=== PATIENT | male | born 1990 | race Caucasian/White ===

== ENCOUNTER 2017-01-04 10:59 | Emergency (ER) | payer BC ==
[2017-01-04] MEDS ORDERED: Acetaminophen/oxyCODONE 325-5 MG Tab PO ONE ×2 (11:24→13:05)
--- NOTE | 2017-01-04 12:31 | EDM.PDOC ---
ED HPI GENERAL MEDICAL PROBLEM - General Chief Complaint: Lower Extremity Injury/Pain Stated Complaint: KNEE INJURY/ BUCKED OFF HORSE YESTERDAY Time Seen by Provider: 01/04/17 11:08 Source of Information: Reports: Patient, RN Notes Reviewed - History of Present Illness INITIAL COMMENTS - FREE TEXT/NARRATIVE: 26-year-old male comes in with left knee and left leg pain. He injured the leg and knee about 3 weeks ago after a fall. His had a scabbed lesion just below the knee that is been slow to heal. He fell again yesterday reinjuring the knee. The pain is much worse this morning. He now is severe pain with any attempt at moving the leg or knee. The knee joint is swollen. Lower leg is also swollen and starting to look somewhat inflamed. He is here requesting pain medicine but also wanting to know "what is wrong" no fever or chills. No chest pain or difficulty breathing Left Anterior Knee Pain Score (Numeric/FACES): 8 - Related Data Allergies Allergy/AdvReac Type Severity Reaction Status Date / Time No Known Allergies Allergy Verified 01/04/17 11:07 Home Meds: Home Meds LORazepam [Ativan] 1 mg PO Q8HR PRN #10 tablet 01/04/17 [Rx] oxyCODONE HCl/Acetaminophen [Percocet 5-325 mg Tablet] 1 each PO Q4HR PRN #20 tablet 01/04/17 [Rx] Past Medical History - Past Surgical History GI Surgical History: Reports: Hernia Repair/Other Social & Family History - Tobacco Use Smoking Status *Q: Never Smoker Second Hand Smoke Exposure: No - Caffeine Use Caffeine Use: Reports: Coffee, Soda - Recreational Drug Use Recreational Drug Use: No Review of Systems - Review of Systems Review Of Systems: See Below Constitutional: Denies: Chills, Fever Eyes: Reports: No Symptoms Mouth/Throat: Reports: No Symptoms Respiratory: Denies: Shortness of Breath, Pleuritic Chest Pain Cardiovascular: Denies: Chest Pain GI/Abdominal: Denies: Nausea, Vomiting Musculoskeletal: Reports: Leg Pain (Left knee left leg), Joint Pain Skin: Reports: Wound (There is an abrasion of the left anterior leg just below the knee that is been slowly heal with surrounding erythema) Neurological: Denies: Numbness, Tingling ED EXAM, GENERAL - Physical Exam Exam: See Below Exam Limited By: No Limitations General Appearance: Alert, Moderate Distress Head: Atraumatic Neck: Supple, Full Range of Motion Respiratory/Chest: No Respiratory Distress, Lungs Clear, Normal Breath Sounds Cardiovascular: Regular Rate, Rhythm Extremities: Joint Swelling (There is swelling, diffuse tenderness, very mild effusion of the left knee no warmth or erythema of the knee. No lesions over the knee.), Leg Pain (There is tenderness swelling, slight erythema of the left calf, 2 abrasion injuries of the anterior calf just below the knee that are scabbed over, moderately inflamed around those areas of prior injury) Course - Vital Signs Last Recorded V/S: Last Vital Signs Temp 98.3 F 01/04/17 11:07 Pulse 84 01/04/17 11:07 Resp 24 H 01/04/17 11:07 BP 156/111 H 01/04/17 11:07 Pulse Ox 100 01/04/17 11:07 - Orders/Labs/Meds Meds: Medications Discontinued Medications Generic Name Dose Route Start Last Admin Trade Name Jakeq PRN Reason Stop Dose Admin Doxycycline Hyclate 200 mg 01/04/17 14:00 01/04/17 14:21 Vibramycin PO 01/04/17 14:01 200 mg ONETIME ONE Administration Ketorolac Tromethamine 60 mg 01/04/17 13:34 01/04/17 13:43 Toradol IM 01/04/17 13:35 60 mg ONETIME ONE Administration Lorazepam 1 mg 01/04/17 14:01 01/04/17 14:21 Ativan PO 01/04/17 14:02 1 mg ONETIME ONE Administration Oxycodone/Acetaminophen 1 tab 01/04/17 11:24 01/04/17 11:38 Percocet 325-5 Mg PO 01/04/17 11:25 1 tab ONETIME ONE Administration Oxycodone/Acetaminophen 1 tab 01/04/17 13:05 01/04/17 13:10 Percocet 325-5 Mg PO 01/04/17 13:06 1 tab ONETIME ONE Administration Trimethoprim/Sulfamethoxazole 2 tab 01/04/17 14:01 01/04/17 14:21 Septra Ds PO 01/04/17 14:02 2 tab ONETIME ONE Administration - Re-Assessments/Exams Free Text/Narrative Re-Assessment/Exam: 01/04/17 14:02. X-rays of the knee are negative for fracture although he does have a small effusion. Ultrasound of the leg is negative for DVT. He does have cellulitis of the lower leg developing. We'll get started with Bactrim and doxycycline at this time. Discharge instructions as documented Departure - Departure Time of Disposition: 14:02 Disposition: Home, Self-Care 01 Condition: Fair Clinical Impression: Left leg cellulitis Left knee sprain Qualifiers: Encounter type: initial encounter Involved ligament of knee: unspecified ligament Qualified Code(s): S83.92XA - Sprain of unspecified site of left knee, initial encounter - Discharge Information Prescriptions: oxyCODONE HCl/Acetaminophen [Percocet 5-325 mg Tablet] 1 each PO Q4HR PRN #20 tablet PRN Reason: Pain LORazepam [Ativan] 1 mg PO Q8HR PRN #10 tablet PRN Reason: Pain Instructions: Cellulitis, Adult, Knee Sprain, [id number] Referrals: PCP,None [Primary Care Provider] - Forms: ED Department Discharge Additional Instructions: Continue Bactrim DS 2 tabs twice daily and doxycycline 100 mg 2 tabs twice daily. Keep knee and leg elevated as much as possible, crutches, no weightbearing. Percocet 1-2 tabs every 6 hours as needed for severe pain, Ativan 1 mg 2-3 times daily if needed for rest and relaxation, Follow up [facility] in 2-3 days for recheck, return to ED if symptoms worsening in any way.
--- NOTE | 2017-01-04 12:38 | CR ---
Left knee: Four views of the left knee were obtained. Comparison: No previous study. Small joint effusion is seen. Medial and lateral joint spaces are maintained in height. No fracture or other bony abnormality is seen. Impression: 1. Small joint effusion. 2. No acute abnormality is identified on left knee exam. Diagnostic code #2
--- NOTE | 2017-01-04 13:11 | US ---
Left lower extremity deep venous ultrasound: Duplex and color flow imaging was obtained of the left common femoral, proximal greater saphenous, superficial femoral, popliteal, posterior tibial and peroneal veins. Right common femoral vein was also evaluated. Technologist's note: Patient unable to tolerate augmentation on upper left leg Findings: Normal phasic flow and compression is seen within the deep veins. Nothing definite is seen to indicate deep venous thrombosis. Incidental 3.5 cm lymph node within the left groin. Impression: 1. Nothing is seen to indicate deep venous thrombosis. Diagnostic code #1
[2017-01-04] MEDS ORDERED: Ketorolac 60 MG/2 ML SDV IM ONE (13:34)
[2017-01-04] MEDS ORDERED: Doxycycline 100 MG Cap PO ONE (14:00)
[2017-01-04] MEDS ORDERED: Sulfamethoxazole/Trimethoprim 800-160 MG Tab PO ONE (14:01)
[2017-01-04] MEDS ORDERED: LORazepam 1 MG Tab PO ONE (14:01)
[2017-01-04 14:44] VITALS: BP 158/100
== END 2017-01-04 14:44 | disposition home or self-care (01) ==
LOC: JD.ED 10:59
DX: S83.92XA Sprain of unspecified site of left knee, initial encounter (principal); L03.116 Cellulitis of left lower limb; W19.XXXA Unspecified fall, initial encounter
CPT/HCPCS: 73564; 93971; 96372; 99284; A9270; J1885; 99283

== ENCOUNTER 2017-07-09 14:31 | Emergency (ER) | payer BC, OTHER ==
[2017-07-09 15:08] VITALS: BP 147/90
[2017-07-09] MEDS ORDERED: Lidocaine 1% with EPINEPHrine 1:100,000 20 ML MDV INJECT ONE (15:20)
[2017-07-09] MEDS ORDERED: Diphtheria,Pertussis(Acell),Tetanus Vaccine 0.5 ML SDV IM ONE (15:20)
--- NOTE | 2017-07-09 15:53 | CR ---
Right foot: 4 views of the right foot were obtained. Comparison: No prior right foot exam. Diffuse soft tissue swelling is identified. No fracture, dislocation or other bony abnormality is seen. Impression: 1. Soft tissue swelling. No discrete bony abnormality is seen. If patient continues to be symptomatic, recommend follow-up study in 10-14 days. Diagnostic code #2
--- NOTE | 2017-07-09 16:29 | EDM.PDOC ---
ED HPI GENERAL MEDICAL PROBLEM - General Chief Complaint: Lower Extremity Injury/Pain Stated Complaint: RIGHT FOOT INJURY Time Seen by Provider: 07/09/17 15:09 Source of Information: Reports: Patient History Limitations: Reports: No Limitations - History of Present Illness INITIAL COMMENTS - FREE TEXT/NARRATIVE: The patient had a sheet of metal fall on his right foot. He had a cut in his boot and bleeding from the boot. He could walk on it but there was some pain and bleeding. His tetanus was last updated about 2007 or 2008. He has no other injuries. Onset: Sudden Duration: Hour(s): Location: Reports: Lower Extremity, Right (foot) Quality: Reports: Sharp Severity: Moderate Improves with: Reports: Immobilization Worsens with: Reports: Movement Associated Symptoms: Reports: No Other Symptoms Right Feet Pain Score (Numeric/FACES): 3 - Related Data Allergies Allergy/AdvReac Type Severity Reaction Status Date / Time No Known Allergies Allergy Verified 01/04/17 11:07 Past Medical History - Past Surgical History GI Surgical History: Reports: Hernia Repair/Other Social & Family History - Family History Family Medical History: Noncontributory - Tobacco Use Smoking Status *Q: Never Smoker Second Hand Smoke Exposure: No - Caffeine Use Caffeine Use: Reports: None - Recreational Drug Use Recreational Drug Use: No Review of Systems - Review of Systems Review Of Systems: See Below Constitutional: Reports: No Symptoms Eyes: Reports: No Symptoms Ears: Reports: No Symptoms Nose: Reports: No Symptoms Mouth/Throat: Reports: No Symptoms Respiratory: Reports: No Symptoms Cardiovascular: Reports: No Symptoms GI/Abdominal: Reports: No Symptoms Genitourinary: Reports: No Symptoms Musculoskeletal: Reports: Other (Right foot injury) ED EXAM, GENERAL - Physical Exam Exam: See Below Exam Limited By: No Limitations General Appearance: Alert, No Apparent Distress Ears: Normal External Exam Nose: Normal Inspection Head: Atraumatic, Normocephalic Neck: Normal Inspection Respiratory/Chest: No Respiratory Distress Extremities: Other (Edema to the right foot with a 1.5cm curved laceration to the front of the foot. Good sensation and capillary refill distally.) ED TRAUMA EXTREMITY PROCEDURES - Laceration/Wound Repair Right Foot Lac/Wound Length In cm: 1.5 Appearance: Subcutaneous, Irregular (curved) Distal NVT: Neuro & Vascular Intact, No Tendon Injury Anesthetic Type: Local Local Anesthesia - Lidocaine (Xylocaine): 1% with EPI Skin Prep: Saline Exploration/Debridement/Repair: Wound Explored, In a Bloodless Field, Explored to Base Closed With: Sutures Suture Size: 4-0 # of Sutures: 2 Suture Type: Nylon, Interrupted, Simple Tetanus Status Addressed: Yes Complications: No Course - Vital Signs Last Recorded V/S: Last Vital Signs Temp 97.9 F 07/09/17 15:04 Pulse 76 07/09/17 15:04 Resp 18 07/09/17 15:04 BP 147/90 H 07/09/17 15:04 Pulse Ox 96 07/09/17 15:04 - Orders/Labs/Meds Orders: Active Orders 24 hr Category Date Time Status Vaccines to be Administered [RC] PER UNIT ROUTINE Care 07/09/17 15:20 Active Meds: Medications Discontinued Medications Generic Name Dose Route Start Last Admin Trade Name Freq PRN Reason Stop Dose Admin Diphtheria/Tetanus/Acell Pertussis 0.5 ml 07/09/17 15:20 07/09/17 15:48 Adacel IM 07/09/17 15:21 0.5 ml .ONCE ONE Administration Lidocaine/Epinephrine 20 ml 07/09/17 15:20 07/09/17 15:48 Xylocaine 1% With Epinephrine 1:100,000 INJECT 07/09/17 15:21 20 ml ONETIME ONE Administration - Re-Assessments/Exams Free Text/Narrative Re-Assessment/Exam: 07/09/17 16:29 The x-ray of the foot shows no fracture. Dr Metzger also looked at his x-ray. Cleopatra hernandez PA helped suture his foot. I also updated his tetanus. I will discharge him home. Departure - Departure Time of Disposition: 16:30 Disposition: Home, Self-Care 01 Condition: Good Clinical Impression: Crushing injury of foot, right Qualifiers: Encounter type: initial encounter Qualified Code(s): S97.81XA - Crushing injury of right foot, initial encounter Contusion of foot, right Qualifiers: Encounter type: initial encounter Qualified Code(s): S90.31XA - Contusion of right foot, initial encounter Laceration of foot Qualifiers: Encounter type: initial encounter Laterality: right Qualified Code(s): S91.311A - Laceration without foreign body, right foot, initial encounter - Discharge Information Referrals: PCP,None [Primary Care Provider] - Nanette Saxena PA [Physician Population Health Coach] - 1 Week Additional Instructions: Soak your foot in warm soapy water 2 times per day and apply antibiotic ointment after. Have the sutures removed in 1 week. Look for any signs of infection such as redness, swelling, pain and drainage. If you see any of these you will need to be seen again and possibly get some oral antibiotics. Have the sutures removed in 1 week. Please return if you are worse. - My Orders Last 24 Hours: My Active Orders 07/09/17 15:20 Vaccines to be Administered [RC] PER UNIT ROUTINE - Assessment/Plan Last 24 Hours: My Active Orders 07/09/17 15:20 Vaccines to be Administered [RC] PER UNIT ROUTINE
== END 2017-07-09 16:52 | disposition home or self-care (01) ==
LOC: JD.ED 14:31
DX: S97.81XA Crushing injury of right foot, initial encounter (principal); S91.311A Laceration without foreign body, right foot, initial encounter; Z23 Encounter for immunization; W20.8XXA Other cause of strike by thrown, projected or falling object, initial encounter
CPT/HCPCS: 12001; 73630-26-RT; 73630-RT; 90471; 90715; 99283-25